=== PATIENT | male | born 1950 | race Caucasian/White ===

== ENCOUNTER 2019-07-17 11:29 | Day surgery (SDC) | payer MEDICARE, OTHER, SELFPAY ==
[2019-07-10 14:43] VITALS: BMI 35.6
--- NOTE | 2019-07-16 13:02 | SUR.PREOP ---
Left msg for patient regarding change in check in times. Requested pt arrive at 1245 rather than 1215.
--- NOTE | 2019-07-17 | DI.RAD.S_ITS ---
PROCEDURE: XR LUMBAR SPINE 2-3V INDICATIONS: L5-S1 DISCECTOMY TECHNIQUE: 2 views of the lumbar spine were acquired. COMPARISON: [facility] [place], CR, XR LUMBAR SPINE 2 OR 3 VIEWS, 07/06/2019, 12:36. [facility], MR, MR LUMBAR SPINE WITHOUT CONTRAST, 06/22/2019, 12:43. FINDINGS: Bones: Localization for posterior approach spine surgery, documenting metallic probe over the posterior elements of L5-S1, right-sided. This is the expected access given reference to the prior MR scanning from 06/22/19. Soft tissues: Overlying bowel gas pattern is normal. No suspicious soft tissue calcifications. IMPRESSION: Right L5-S1 localization posteriorly, for discectomy procedure. Dictated by: Ezio Wyman M.D. on 07/18/2019 at 9:56 Approved by: Ezio Wyman M.D. on 07/18/2019 at 9:58
[2019-07-17 12:48] VITALS: BP 177/82; PULSE 102; RESP 16; TEMP 36.4; O2SAT 99; BMI 33.8
--- NOTE | 2019-07-17 14:44 | PM.PREOP ---
Pre-operative Note Interval Note History & Physical reviewed/Exam performed by Physician: Yes Changes to H&P: No
[2019-07-17] MEDS: ACETAMINOPHEN 325 MG TABLET 975 MG PO (15:20)
[2019-07-17] MEDS: GABAPENTIN 300 MG CAPSULE PO (15:20)
[2019-07-17] MEDS: LACTATED RINGERS 1,000 ML 42 ML IV ×2 (15:20→16:17)
[2019-07-17] MEDS: CELECOXIB 200 MG CAPSULE 400 MG PO (15:21)
[2019-07-17] MEDS: OXYCODONE IR 5 MG TABLET PO (15:22)
[2019-07-17] MEDS: CEFAZOLIN 2 GM/100 ML FROZ.PIGGY IV (15:25)
--- NOTE | 2019-07-17 16:03 | SUR.OPER ---
Prone on spine table, head in foam head support, padded chest and pelvic supports, gel pad at knees, lower legs supported by pillows; nipples, genitalia and toes free of pressure, arms secured on foam padded arm boards at <90 degrees abduction. Tape over blanket at thigh secured to table.
[2019-07-17] MEDS: THROMBIN (RECOMBINANT) 5,000 UNIT VIAL 5000 UNIT TOP (16:08)
[2019-07-17] MEDS: SODIUM CHLORIDE 0.9% 1,000 ML, GENTAMICIN 80 MG IRR (16:09)
[2019-07-17] MEDS: BUPIVACAINE 0.25% (PF) 8 ML, fentaNYL 100 MCG INJ (16:10)
--- NOTE | 2019-07-17 16:42 | PM.OP.1 ---
Operative Date/Time/Diagnoses Date of procedure: 07/17/19 Time of procedure: 16:42 Pre-op diagnosis: Lumbar disc herniation with radiculopathy Post-op diagnosis: same Procedure & Clinicians Procedure: Right L5-S1 diskectomy Use of microscope Placement of epidural catheter Same procedure as scheduled: Yes Indications: [age] year old male with intractable pain from lumbar disc herniation. They had failed conservative management and requested operative intervention. Risks and benefits of surgery were discussed and appropriate consents were obtained. Surgeon: Lane Nielson Doctor Podiatric Medicine: Bernadine Maya Anesthesia Type: General Operative Notes Findings: None Closure Type: primary Specimen(s): none sent Estimated Blood Loss (mL): 10 Procedure in detail: Patient was brought to the operating room and intubated on the table. A time-out was performed. There were rolled over the well-padded prone position on the Shon table. The back was prepped and draped in standard sterile fashion. Preoperative antibiotics were given. Using fluoroscopy, a 3 cm incision was made to the well-marked right of the midline at the L5-S1 level. We used Bovie to come down to and split the fascia. We then used the [employer] Ma[employer] dilators with fluoroscopy and then opened our retractors. The soft tissue was cleared off with Bovie, a marker was placed, an x-ray was taken to confirm positioning. We then brought in the microscope. A combination of high-speed bur and Kerrison were used to perform a right-sided hemilaminotomy and hemifacetectomy. We carefully retracted the dura and exposed the disc. This was cleared with bipolar. A scalpel used to perform an annulotomy and a pituitary was used to perform the diskectomy. The ball probe was swept underneath the dura along the disc to make sure there were no further loose fragments. This was also placed into the disc and moved around to make sure there were no further loose fragments. Once everything was adequately decompressed, the wound was copiously irrigated. An epidural catheter was filled with 100 mcg of fentanyl and 8 mL of 0.25% Marcaine. The dura was carefully depressed under the laminotomy site and the catheter was advanced 6 cm cephalad. The retractor was removed and the fascia was closed. The epidural catheter was then injected without resistance and removed. Vancomycin powder was placed in the wound. Superficial and skin were closed. Sterile dressing was placed. The patient was then rolled over, transferred to the stretcher, and brought to recovery room without complications. Complications: none Post-operative Condition: stable Disposition: PACU Plan for aftercare: Outpatient. Limited BLT x2 weeks then increase activity as tolerated. May refer to PT at that point.
[2019-07-17 16:56] VITALS: BP 165/70; PULSE 98; RESP 14; TEMP 35.9; O2SAT 95
[2019-07-17 17:01] VITALS: BP 130/85; PULSE 97; RESP 11; O2SAT 97
[2019-07-17 17:06] VITALS: BP 146/65; PULSE 90; RESP 12; TEMP 36.1; O2SAT 98
[2019-07-17 17:11] VITALS: BP 126/85; PULSE 89; RESP 12; O2SAT 100
[2019-07-17 17:14] VITALS: BP 150/70; PULSE 91; RESP 12; TEMP 36.4; O2SAT 99
== END 2019-07-17 17:33 | disposition home or self-care (01) ==
PROVIDERS: Visit Provider Orthopaedic Surgery
PROC: (CPT 63030; principal; 2019-07-17 14:15)
DX: M51.16 Intervertebral disc disorders with radiculopathy, lumbar region (principal); M48.062 Spinal stenosis, lumbar region with neurogenic claudication
CPT/HCPCS: 63030; 72100; 76000; J0330; J0690; J1100; J1885; J2405; J2704; J3010